=== PATIENT | female | born 1950 | race Caucasian/White ===

== ENCOUNTER → 2016-07-04 | Outpatient (CLI) | payer OTHER ==
[~2016-07-04] MED LIST: ACTOPLUS MET 851 TAB PO; AMBIEN10 MG PO; BENICAR20 MG PO; BUSPAR5 MG PO; CELEXA40 MG PO; COZAAR50 MG PO; DESYREL50 MG PO; ENALAPRIL10 M1 PO; LYRICA75 MG PO; MICRONASE5 MG PO; PROTONIX40 MG PO; SERTRALINE100 M1 PO; SIMVASTATIN20 MG PO; TYLENOL #3 300/1 TAB PO; ULTRAM50 MG PO; VOLTAREN75 M1 PO
== END ==
LOC: MLB 09:50
PROVIDERS: ATTEND Family Medicine Geriatric Medicine
DX: Z13.29 Encounter for screening for other suspected endocrine disorder (principal); Z13.0 Encounter for screening for diseases of the blood and blood-forming organs and certain disorders involving the immune mechanism; E11.9 Type 2 diabetes mellitus without complications; E78.5 Hyperlipidemia, unspecified

== ENCOUNTER 2016-08-15 10:34 | Outpatient (CLI) | payer OTHER ==
[~2016-08-15 10:34] MED LIST changes: -ACTOPLUS MET 851 TAB PO; -AMBIEN10 MG PO; -BENICAR20 MG PO; +BUS5 PO; -BUSPAR5 MG PO; -CELEXA40 MG PO; +CITA40TA13 PO; +COZ50 PO; -COZAAR50 MG PO; -DESYREL50 MG PO; -ENALAPRIL10 M1 PO; +LYR75 PO; -LYRICA75 MG PO; -MICRONASE5 MG PO; +PANT40EC PO; -PROTONIX40 MG PO; -SERTRALINE100 M1 PO; -SIMVASTATIN20 MG PO; +TRAZ-286 PO; +TYL3 PO; -TYLENOL #3 300/1 TAB PO; -ULTRAM50 MG PO; -VOLTAREN75 M1 PO
[2016-08-15 11:05] LABS: BASOPHILS # (AUTO) 0.1 K/uL (0.00-0.22); BASOPHILS % (AUTO) 0.8 % (0.0-2.0); EOSINOPHILS # (AUTO) 0.4 K/uL (0-0.4); EOSINOPHILS % (AUTO) 4.7 % (0.0-4.0); HEMATOCRIT 36.3 % (36-48); LYMPHOCYTES # (AUTO) 1.9 K/uL (2.5-16.5); LYMPHOCYTES % (AUTO) 23.8 % (20.5-51.1); MEAN CORPUSCULAR HEMOGLOBIN 31 pg (27-31); MEAN CORPUSCULAR HGB CONC 33 g/dL (33-37); MEAN CORPUSCULAR VOLUME 93 fL (80-94); MONOCYTES # (AUTO) 0.5 K/uL (0.8-1.0); NEUTROPHILS # (AUTO) 5.1 K/uL (1.8-7.7); NEUTROPHILS % (AUTO) 64.7 % (42.2-75.2); PLATELET COUNT (AUTO) 182 K/uL (140-450); RED BLOOD CELL COUNT(AUTO) 3.92 MIL/uL (4.20-5.40); RED CELL DISTRIBUTION WIDTH 12.6 % (11.6-13.7)
[2016-08-15 11:12] LABS: APPEARANCE,URINE CLEAR (CLEAR); BILIRUBIN,URINE NEGATIVE (NEGATIVE); BLOOD, URINE NEGATIVE (NEGATIVE); COLOR,URINE YELLOW (YELLOW); LEUKOCYTE ESTERASE ,URINE NEGATIVE (NEGATIVE); NITRITE, URINE NEGATIVE (NEGATIVE); PROTEIN,URINE NEGATIVE (NEGATIVE); UGLUCOSE NEGATIVE (NEGATIVE); UROBILINOGEN,URINE 0.2 EU/dL (0.2 - 1)
[2016-08-15 11:20] LABS: BACTERIA,URINE OCCASSIONAL /HPF (None Seen); RBC,URINE 0-5 (RARE) /HPF (0-5); SQUAMOUS EPITHELIAL CELL,UR 4-10 (MOD) /LPF (0-3 (FEW)); WBC,URINE 0-5 (RARE) /HPF (0-5)
[2016-08-15 11:22] LABS: ALBUMIN 3.6 g/dL (3.4-5.0); ANION GAP 14.1 (8-16); CALCIUM 8.6 mg/dL (8.5-10.1); POTASSIUM 4.1 mmol/L (3.5-5.1); TOTAL BILIRUBIN 0.6 mg/dL (0.0-1.0); TOTAL PROTEIN, SERUM 7.3 g/dL (6.4-8.2)
[2016-08-15 11:42] LABS: URIC ACID 4.7 mg/dL (2.6-7.2)
[2016-08-16 09:23] LABS: HEMOGLOBIN A1C 7.1 % (4.8-5.6)
[2016-08-16 15:07] LABS: MICROALBUMIN, UR RANDOM 4.6 ug/mL (Not Estab.)
== END 2016-08-15 20:59 | disposition home or self-care (01) ==
LOC: MLB 10:34
PROVIDERS: ATTEND Internal Medicine Nephrology
PROC: BT43ZZZ Ultrasonography of Bilateral Kidneys (ICD-10-PCS; principal; 2016-08-15)
DX: R10.9 Unspecified abdominal pain (principal); I10 Essential (primary) hypertension; E11.9 Type 2 diabetes mellitus without complications
CPT/HCPCS: 36415; 76770; 80053; 81001; 82043; 82306; 82570; 83036; 83970; 84550; 85025

== ENCOUNTER 2016-11-25 10:49 | Outpatient (CLI) | payer OTHER ==
[2016-11-25 11:38] LABS: ALBUMIN 3.4 g/dL (3.4-5.0); ANION GAP 14.4 (8-16); CALCIUM 8.5 mg/dL (8.5-10.1); CARBON DIOXIDE 20.8 mmol/L (21-32); CHOL/HDL RATIO 3.7 (1-4.5); CREATININE 1.2 mg/dL (0.6-1.3); POTASSIUM 4.2 mmol/L (3.5-5.1); TOTAL BILIRUBIN 0.4 mg/dL (0.0-1.0); TOTAL PROTEIN, SERUM 7.4 g/dL (6.4-8.2)
== END 2016-11-25 20:37 | disposition home or self-care (01) ==
LOC: MLB 10:49
PROVIDERS: ATTEND Family Medicine Geriatric Medicine
DX: E11.29 Type 2 diabetes mellitus with other diabetic kidney complication (principal); I10 Essential (primary) hypertension
CPT/HCPCS: 36415; 80053; 83036

== ENCOUNTER 2016-12-02 10:30 | Outpatient (CLI) | payer OTHER ==
[2016-12-02 10:55] LABS: BASOPHILS # (AUTO) 0.1 K/uL (0.00-0.22); EOSINOPHILS # (AUTO) 0.3 K/uL (0-0.4); EOSINOPHILS % (AUTO) 2.8 % (0.0-4.0); HEMATOCRIT 36.3 % (36-48); LYMPHOCYTES # (AUTO) 1.6 K/uL (2.5-16.5); LYMPHOCYTES % (AUTO) 16.5 % (20.5-51.1); MEAN CORPUSCULAR HEMOGLOBIN 30 pg (27-31); MEAN CORPUSCULAR HGB CONC 33 g/dL (33-37); MEAN CORPUSCULAR VOLUME 92 fL (80-94); MONOCYTES # (AUTO) 0.5 K/uL (0.8-1.0); MONOCYTES % (AUTO) 5.2 % (1.7-9.3); NEUTROPHILS # (AUTO) 7.3 K/uL (1.8-7.7); NEUTROPHILS % (AUTO) 74.5 % (42.2-75.2); PLATELET COUNT (AUTO) 194 K/uL (140-450); RED BLOOD CELL COUNT(AUTO) 3.95 MIL/uL (4.20-5.40); RED CELL DISTRIBUTION WIDTH 12.9 % (11.6-13.7); WHITE BLOOD COUNT (AUTO) 9.8 K/uL (4.8-10.8)
[2016-12-02 11:04] LABS: APPEARANCE,URINE CLEAR (CLEAR); BILIRUBIN,URINE NEGATIVE (NEGATIVE); BLOOD, URINE NEGATIVE (NEGATIVE); COLOR,URINE YELLOW (YELLOW); LEUKOCYTE ESTERASE ,URINE 1+ (NEGATIVE); NITRITE, URINE NEGATIVE (NEGATIVE); PROTEIN,URINE NEGATIVE (NEGATIVE); UGLUCOSE NEGATIVE (NEGATIVE); UROBILINOGEN,URINE 0.2 EU/dL (0.2 - 1)
[2016-12-02 11:25] LABS: BACTERIA,URINE 0-2 (RARE) /HPF (None Seen); RBC,URINE NONE SEEN /HPF (0-5); SQUAMOUS EPITHELIAL CELL,UR 0-3 (FEW) /LPF (0-3 (FEW))
[2016-12-02 11:28] LABS: ALBUMIN 3.6 g/dL (3.4-5.0); ANION GAP 12.3 (8-16); CALCIUM 8.5 mg/dL (8.5-10.1); CARBON DIOXIDE 24.7 mmol/L (21-32); CREATININE 1.1 mg/dL (0.6-1.3); PHOSPHORUS 2.4 mg/dL (2.5-4.9); TOTAL BILIRUBIN 0.6 mg/dL (0.0-1.0); TOTAL PROTEIN, SERUM 7.6 g/dL (6.4-8.2)
[2016-12-02 12:02] LABS: URIC ACID 4.8 mg/dL (2.6-7.2)
[2016-12-03 11:03] LABS: HEMOGLOBIN A1C 7.7 % (4.8-5.6); VITAMIN D, 25-HYDROXY 14.3 ng/mL (30.0-100.0)
[2016-12-04 12:46] LABS: MICROALBUMIN, UR RANDOM 28.1 ug/mL (Not Estab.)
== END 2016-12-02 19:55 | disposition home or self-care (01) ==
LOC: MLB 10:30
PROVIDERS: ATTEND Internal Medicine Nephrology
DX: N18.3 Chronic kidney disease, stage 3 (moderate) (principal); E11.22 Type 2 diabetes mellitus with diabetic chronic kidney disease; E11.21 Type 2 diabetes mellitus with diabetic nephropathy
CPT/HCPCS: 36415; 80053; 81001; 82043; 82306; 83036; 83970; 84100; 84550; 85025; 87086

== ENCOUNTER 2016-12-19 10:49 | Outpatient (CLI) | payer OTHER | END 2016-12-19 21:04 | disposition home or self-care (01) | LOC: MRD 10:49 | PROVIDERS: ATTEND Family Medicine Geriatric Medicine | DX: M25.511 Pain in right shoulder (principal) | CPT/HCPCS: 73030 ==

== ENCOUNTER 2017-01-06 11:03 | Outpatient (CLI) | payer OTHER | END 2017-01-06 20:20 | disposition home or self-care (01) | LOC: MRD 11:03 | PROVIDERS: ATTEND Neuromusculoskeletal Medicine, Sports Medicine | DX: N92.0 Excessive and frequent menstruation with regular cycle (principal) | CPT/HCPCS: 76856 ==

== ENCOUNTER 2017-03-12 09:44 | Outpatient (CLI) | payer OTHER ==
[2017-03-12 10:17] LABS: BASOPHILS # (AUTO) 0.1 K/uL (0.00-0.22); BASOPHILS % (AUTO) 1.6 % (0.0-2.0); EOSINOPHILS # (AUTO) 0.3 K/uL (0-0.4); EOSINOPHILS % (AUTO) 3.5 % (0.0-4.0); HEMATOCRIT 37.2 % (36-48); HEMOGLOBIN 12.2 g/dL (12.0-16.0); LYMPHOCYTES # (AUTO) 1.9 K/uL (2.5-16.5); LYMPHOCYTES % (AUTO) 23.1 % (20.5-51.1); MEAN CORPUSCULAR HEMOGLOBIN 31 pg (27-31); MEAN CORPUSCULAR HGB CONC 33 g/dL (33-37); MEAN CORPUSCULAR VOLUME 94 fL (80-94); MONOCYTES # (AUTO) 0.4 K/uL (0.8-1.0); MONOCYTES % (AUTO) 4.6 % (1.7-9.3); NEUTROPHILS # (AUTO) 5.6 K/uL (1.8-7.7); NEUTROPHILS % (AUTO) 67.2 % (42.2-75.2); PLATELET COUNT (AUTO) 209 K/uL (140-450); RED BLOOD CELL COUNT(AUTO) 3.96 MIL/uL (4.20-5.40); RED CELL DISTRIBUTION WIDTH 12.9 % (11.6-13.7); WHITE BLOOD COUNT (AUTO) 8.3 K/uL (4.8-10.8)
[2017-03-12 10:22] LABS: APPEARANCE,URINE CLEAR (CLEAR); BILIRUBIN,URINE NEGATIVE (NEGATIVE); BLOOD, URINE NEGATIVE (NEGATIVE); COLOR,URINE YELLOW (YELLOW); LEUKOCYTE ESTERASE ,URINE NEGATIVE (NEGATIVE); NITRITE, URINE NEGATIVE (NEGATIVE); UGLUCOSE NEGATIVE (NEGATIVE)
[2017-03-12 10:29] LABS: RBC,URINE NONE SEEN /HPF (0-5); WBC,URINE 0-5 (RARE) /HPF (0-5)
[2017-03-12 11:41] LABS: ALBUMIN 3.7 g/dL (3.4-5.0); ANION GAP 13.6 (8-16); CARBON DIOXIDE 24.5 mmol/L (21-32); CREATININE 1.4 mg/dL (0.6-1.3); PHOSPHORUS 3.9 mg/dL (2.5-4.9); POTASSIUM 4.1 mmol/L (3.5-5.1); TOTAL BILIRUBIN 0.6 mg/dL (0.0-1.0)
[2017-03-13 13:56] LABS: URIC ACID 6.3 mg/dL (2.6-7.2)
== END 2017-03-12 20:45 | disposition home or self-care (01) ==
LOC: MLB 09:44
DX: I12.9 Hypertensive chronic kidney disease with stage 1 through stage 4 chronic kidney disease, or unspecified chronic kidney disease (principal); E11.22 Type 2 diabetes mellitus with diabetic chronic kidney disease; N18.3 Chronic kidney disease, stage 3 (moderate)
CPT/HCPCS: 36415; 80053; 81001; 82306; 83036; 83970; 84100; 84550; 85025; 87086

== ENCOUNTER 2017-05-20 16:25 | Outpatient (CLI) | payer OTHER | END 2017-05-20 21:00 | disposition home or self-care (01) | LOC: MRD 16:25 | PROVIDERS: ATTEND Student in an Organized Health Care Education/Training Program | DX: R05 Cough (principal); I10 Essential (primary) hypertension; E11.9 Type 2 diabetes mellitus without complications | CPT/HCPCS: 71045 ==

== ENCOUNTER 2017-06-18 09:44 | Outpatient (CLI) | payer OTHER ==
[2017-06-18 11:35] LABS: BASOPHILS # (AUTO) 0.1 K/uL (0.00-0.22); BASOPHILS % (AUTO) 1.3 % (0.0-2.0); EOSINOPHILS # (AUTO) 0.3 K/uL (0-0.4); EOSINOPHILS % (AUTO) 3.4 % (0.0-4.0); HEMATOCRIT 36.1 % (36-48); LYMPHOCYTES # (AUTO) 1.6 K/uL (2.5-16.5); LYMPHOCYTES % (AUTO) 21.3 % (20.5-51.1); MEAN CORPUSCULAR HEMOGLOBIN 31 pg (27-31); MEAN CORPUSCULAR HGB CONC 33 g/dL (33-37); MEAN CORPUSCULAR VOLUME 93 fL (80-94); MONOCYTES # (AUTO) 0.4 K/uL (0.8-1.0); MONOCYTES % (AUTO) 5.6 % (1.7-9.3); NEUTROPHILS # (AUTO) 5.2 K/uL (1.8-7.7); NEUTROPHILS % (AUTO) 68.4 % (42.2-75.2); PLATELET COUNT (AUTO) 172 K/uL (140-450); RED BLOOD CELL COUNT(AUTO) 3.88 MIL/uL (4.20-5.40); RED CELL DISTRIBUTION WIDTH 12.3 % (11.6-13.7); WHITE BLOOD COUNT (AUTO) 7.6 K/uL (4.8-10.8)
[2017-06-18 11:53] LABS: APPEARANCE,URINE CLEAR (CLEAR); BILIRUBIN,URINE NEGATIVE (NEGATIVE); BLOOD, URINE NEGATIVE (NEGATIVE); COLOR,URINE YELLOW (YELLOW); LEUKOCYTE ESTERASE ,URINE NEGATIVE (NEGATIVE); NITRITE, URINE NEGATIVE (NEGATIVE); PH,URINE 5.5 (5.0-9.0); UGLUCOSE NEGATIVE (NEGATIVE)
[2017-06-18 12:08] LABS: RBC,URINE NONE SEEN /HPF (0-5); WBC,URINE 0-5 (RARE) /HPF (0-5)
[2017-06-18 12:29] LABS: ALBUMIN 3.6 g/dL (3.4-5.0); ANION GAP 15.9 (8-16); CARBON DIOXIDE 22.9 mmol/L (21-32); CREATININE 1.2 mg/dL (0.6-1.3); PHOSPHORUS 2.9 mg/dL (2.5-4.9); POTASSIUM 4.8 mmol/L (3.5-5.1); TOTAL BILIRUBIN 0.6 mg/dL (0.0-1.0)
[2017-06-19 12:38] LABS: MICROALBUMIN, UR RANDOM 5.1 ug/mL (Not Estab.)
== END 2017-06-18 21:06 | disposition home or self-care (01) ==
LOC: MLB 09:44
PROVIDERS: ATTEND Family Medicine Geriatric Medicine
DX: Z13.21 Encounter for screening for nutritional disorder (principal); Z13.0 Encounter for screening for diseases of the blood and blood-forming organs and certain disorders involving the immune mechanism; Z13.29 Encounter for screening for other suspected endocrine disorder; Z12.11 Encounter for screening for malignant neoplasm of colon; E11.21 Type 2 diabetes mellitus with diabetic nephropathy; I12.9 Hypertensive chronic kidney disease with stage 1 through stage 4 chronic kidney disease, or unspecified chronic kidney disease; E11.22 Type 2 diabetes mellitus with diabetic chronic kidney disease; N18.3 Chronic kidney disease, stage 3 (moderate); E78.5 Hyperlipidemia, unspecified; E11.29 Type 2 diabetes mellitus with other diabetic kidney complication
CPT/HCPCS: 36415; 80053; 81001; 82043; 82306; 83036; 84100; 84443; 84550; 85025

== ENCOUNTER 2017-09-09 14:00 | Emergency (ER) | payer MEDICARE, OTHER ==
[~2017-09-09] VITALS: Ht 167.6 cm; Wt 79.4 kg
[2017-09-09 14:04] VITALS: BP 133/83
--- NOTE | 2017-09-09 14:07 | NUR ---
PT AMBULATES TO BED 11
--- NOTE | 2017-09-09 14:09 | NUR ---
PT C/O RT ARM PAIN S/P MECH FALL TODAY. SMALL BRUISE OBSERVED TO RT HUMERUS, NO DEFORMITY, DECREASED ROM. MD BARR AT BEDSIDE TO STUART
[2017-09-09] MEDS ORDERED: HYDROcodone/APAP 5/325 MG 1 TAB TAB PO ONE (14:15)
[2017-09-09] MEDS ORDERED: KETOROLAC 60 MG/2 ML VIAL IM ONE (14:15)
[2017-09-09 15:11] VITALS: BP 134/89
--- NOTE | 2017-09-09 15:12 | NUR ---
Patient discharged with v/s stable. Written and verbal after care instructions given and explained. Patient alert, oriented and verbalized understanding of instructions. Ambulatory with steady gait. All questions addressed prior to discharge. ID band removed. Patient advised to follow up with PMD. Rx of NAPROSYN, NORCO given. Patient educated on indication of medication including possible reaction and side effects. Opportunity to ask questions provided and answered.
== END 2017-09-09 15:12 | disposition home or self-care (01) ==
LOC: MED 14:00
DX: S46.911A Strain of unspecified muscle, fascia and tendon at shoulder and upper arm level, right arm, initial encounter (principal); S00.93XA Contusion of unspecified part of head, initial encounter; S70.02XA Contusion of left hip, initial encounter; E11.9 Type 2 diabetes mellitus without complications; I10 Essential (primary) hypertension; Z90.49 Acquired absence of other specified parts of digestive tract; W01.0XXA Fall on same level from slipping, tripping and stumbling without subsequent striking against object, initial encounter; Y93.89 Activity, other specified; Y99.8 Other external cause status; Y92.89 Other specified places as the place of occurrence of the external cause
CPT/HCPCS: 73060; 96372; 99284; J1885; Q0092

== ENCOUNTER 2018-09-01 16:55 | Emergency (ER) | payer MEDICARE ==
[~2018-09-01] VITALS: Ht 165.1 cm; Wt 77.1 kg
[~2018-09-01 16:55] MED LIST changes: -TRAZ-286 PO; +TRAZ-343 PO
[2018-09-01 17:14] VITALS: BP 135/73
--- NOTE | 2018-09-01 17:18 | NUR ---
X-RAY ORDERED---PT WITH WILL WAIT IN ER LOBBY WAIT FOR AVAILABLE ROOM FOR MD DAVIDSON
--- NOTE | 2018-09-01 17:49 | NUR ---
PT IN XRAY
--- NOTE | 2018-09-01 17:56 | NUR ---
PT TO CHAIR C WITH STEADY GAIT. REPORTS 02/25 PAIN EXACERBATED BY INSPIRATION TO RIGHT RIBS S/P MRI TODAY. PT STATES " I FELT CRACKING WHILE IN THE MRI, I WAS PRESSED SO HARD". +TENDERNESS TO PALPATION. LUNGS CTAB, RESPIRATIONS EVEN AND UNLABORED. DENIES SOB. REPORTS PMH: DM, RIGHT BREAST MASS. SANTANA VOSS MADE AWARE
[2018-09-01] MEDS ORDERED: KETOROLAC 30 MG/ML VIAL IM ONE (19:00)
[2018-09-01 19:46] VITALS: BP 135/73
== END 2018-09-01 19:47 | disposition home or self-care (01) ==
LOC: MED 16:55
DX: S20.211A Contusion of right front wall of thorax, initial encounter (principal); I10 Essential (primary) hypertension; E11.9 Type 2 diabetes mellitus without complications; Z79.1 Long term (current) use of non-steroidal anti-inflammatories (NSAID); Z79.899 Other long term (current) drug therapy; X58.XXXA Exposure to other specified factors, initial encounter; Y93.89 Activity, other specified; Y92.89 Other specified places as the place of occurrence of the external cause; Y99.8 Other external cause status
CPT/HCPCS: 71101; 96372; 99283; J1885

== ENCOUNTER 2018-09-11 11:18 | Inpatient (IN) | payer MEDICARE ==
[~2018-09-11] VITALS: Ht 170.2 cm; Wt 81.2 kg
--- NOTE | 2018-09-11 11:19 | NUR ---
PATIENT WHEELCHAIR ASSISTED TO BED 10 AT THIS TIME.
[2018-09-11 11:27] VITALS: BP 163/79
--- NOTE | 2018-09-11 11:30 | NUR ---
c/o weakness/cp/n/v x 1 day. pt is lethargic & confused, arousable to major stimulation. fsbs is 262. pt is sleeping/snoring in bed. PT IS WEAK IN ALL 4 EXTREMETIES. SKIN IS PINK/WARM/DRY; AAOX1 AND UNABLE TO AMBULATE LUNGS CLEAR BL; HR EVEN AND REGULAR; VSS; PATIENT POSITIONED FOR COMFORT; HOB ELEVATED; BEDRAILS UP X1; BED DOWN. ER MD MADE AWARE OF PT STATUS.
--- NOTE | 2018-09-11 12:04 | NUR ---
PT LEFT TO CT
[2018-09-11] MEDS ORDERED: BACL10TA4 PO (12:26)
[2018-09-11] MEDS ORDERED: OMEP20TC12 PO (12:26)
[2018-09-11] MEDS ORDERED: APR20I IJ (12:26)
[2018-09-11] MEDS ORDERED: GLIM2TAB PO (12:26)
[2018-09-11] MEDS ORDERED: BUS5 PO (12:26)
[2018-09-11] MEDS ORDERED: METF1000 PO (12:26)
[2018-09-11] MEDS ORDERED: DICL-388 PO (12:26)
[2018-09-11] MEDS ORDERED: TRAZ-343 PO (12:26)
[2018-09-11] MEDS ORDERED: CITA40TA13 PO (12:26)
[2018-09-11] MEDS ORDERED: GABA300C PO (12:26)
[2018-09-11] MEDS ORDERED: SITA100T8 PO (12:26)
[2018-09-11 12:27] LABS: ANION GAP 15.2 (8-16); BASOPHILS % (AUTO) 0.2 % (0.0-2.0); CARBON DIOXIDE 21.7 mmol/L (21-32); CHLORIDE 105 mmol/L (98-107); CREATININE 1.3 mg/dL (0.6-1.3); EOSINOPHILS % (AUTO) 0.3 % (0.0-4.0); GFR ARICAN-AMERICAN 52 mL/min (>90); GLUCOSE 275 mg/dL (74-106); HEMATOCRIT 31.8 % (36-48); HEMOGLOBIN 10.7 g/dL (12.0-16.0); LYMPHOCYTES # (AUTO) 0.7 K/uL (2.5-16.5); MEAN CORPUSCULAR HEMOGLOBIN 33 pg (27-31); MEAN CORPUSCULAR HGB CONC 34 g/dL (33-37); MEAN CORPUSCULAR VOLUME 98.1 fL (80-94); MONOCYTES # (AUTO) 0.3 K/uL (0.8-1.0); MONOCYTES % (AUTO) 3.2 % (1.7-9.3); NEUTROPHILS % (AUTO) 88.3 % (42.2-75.2); PLATELET COUNT (AUTO) 197 K/uL (140-450); POTASSIUM 4.9 mmol/L (3.5-5.1); RED BLOOD CELL COUNT(AUTO) 3.24 MIL/uL (4.20-5.40); RED CELL DISTRIBUTION WIDTH 13.3 % (11.6-13.7); SODIUM SERUM 137 mmol/L (136-145); UREA NITROGEN, BLOOD 33 mg/dL (7-18); WHITE BLOOD COUNT (AUTO) 9.1 K/uL (4.8-10.8)
[2018-09-11 12:31] LABS: ALBUMIN 3.6 g/dL (3.4-5.0); ASPARTATE AMINOTRANSFERASE 23 U/L (15-37); TOTAL BILIRUBIN 0.3 mg/dL (0.0-1.0)
--- NOTE | 2018-09-11 12:35 | NUR ---
URINE SAMPLE COLLECTED VIA STRAIGHT CATH, SENT TO LAB
[2018-09-11 12:36] LABS: ACETAMINOPHEN < 0.5 ug/ml (10-30); SALICYLATE < 2.8 mg/dL (2.8-20.0)
--- NOTE | 2018-09-11 12:40 | NUR ---
PERFORMED STRAIGHT CATH TO OBTAIN URINE, PT TOLERATED PROCEDURE WELL. 300 CC CLEAR YELLOW URINE RETURNED
--- NOTE | 2018-09-11 12:43 | NUR ---
PT ASLEEP IN BED, AT BEDSIDE
[2018-09-11 13:07] LABS: APPEARANCE,URINE CLEAR (CLEAR); BILIRUBIN,URINE NEGATIVE (NEGATIVE); BLOOD, URINE NEGATIVE (NEGATIVE); COLOR,URINE YELLOW (YELLOW); LEUKOCYTE ESTERASE ,URINE NEGATIVE (NEGATIVE); NITRITE, URINE NEGATIVE (NEGATIVE); PH,URINE 5.5 (5.0-9.0); UGLUCOSE 3+ (NEGATIVE)
[2018-09-11 13:12] LABS: BARBITURATE, URINE NEG. ng/ml (NEG <=200); BENZODIAZEPINE, URINE NEG. ng/mL (NEG <=200); CANNABINOID, URINE NEG. ng/mL (NEG <=50); COCAINE, URINE NEG. ng/mL (NEG <=300); OPIATE, URINE NEG. ng/mL (NEG <=2000); PHENCYCLIDINE SCREEN,URINE NEG. ng/mL (NEG <=25)
[2018-09-11 13:40] LABS: RBC,URINE NONE SEEN /HPF (0-5); WBC,URINE 0-5 /HPF (0-5)
[2018-09-11] MEDS ORDERED: NACL 0.9% 1,000 ML IV ONE (14:40)
--- NOTE | 2018-09-11 15:47 | NUR ---
PT RESTING/ASLEEP IN BED
--- NOTE | 2018-09-11 16:52 | NUR ---
PT ASLEEP AT THIS TIME, FAMILY AT BEDSIDE
[2018-09-11] MEDS ORDERED: ONDANSETRON 4 MG/2 ML VIAL IVP PRN (17:15)
[2018-09-11] MEDS ORDERED: HYDROcodone/APAP 7.5/325 MG 1 TAB PO PRN (17:15)
[2018-09-11] MEDS ORDERED: DEXTROSE 50% 50 ML SYR IVP PRN (17:15)
[2018-09-11] MEDS ORDERED: MELATONIN 3 MG TAB PO PRN (17:50)
[2018-09-11] MEDS ORDERED: MEDICATION REC. PHARMACY CONS. 1 EA MISC MC PRN (17:50)
--- NOTE | 2018-09-11 18:09 | NUR ---
Pt transferred to Tele viaBED WITH KARINA ASHRAF .
--- NOTE | 2018-09-11 18:10 | NUR ---
Patient will be admitted to care of DR STEPHENSON. Admited to [facility]. Will go to room 121A. Belongings list completed. Report to JANI.
--- NOTE | 2018-09-11 18:20 | NUR ---
RECEIVED REPORT FROM EMERGENCY ROOM NURSE PASCALE FOR CONTINUITY OF CARE. PT IN STABLE CONDITION. RESPIRATIONS EVEN AND UNLABORED. IV INTACT AND PATENT. BED IN LOW POSITION. BED ALARM ON. CALL LIGHT AT BEDSIDE. WILL CONTINUE TO MONITOR.
--- NOTE | 2018-09-11 19:07 | NUR ---
ASSISTED PT WITH BEDPAN FOR URINATION. PT TOLERATED WELL. WILL CONTINUE TO MONITOR.
[2018-09-11 19:30] VITALS: BP 154/83
--- NOTE | 2018-09-11 19:30 | NUR ---
RECEIVED BEDSIDE REPORT FROM DAY SHIFT NURSE. PATIENT SLEEPING INTERMITTENTLY BUT AWAKENS WHEN CALLED. ORIENTED TO TIME, PLACE, AND PERSON AOX3. SPEECH COHERENT. RESPIRATION EVEN UNLABORED ON 2L O2 NC. NO DISTRESS NOTED. SKIN IS WARM AND DRY. IV PATENT AND INTACT. LUNGS SOUNDS CLEAR ON AUSCULTATION. BOWEL SOUNDS PRESENT IN 4 QUADRANTS. ABDOMEN ROUND, SOFT, AND NON-TENDER. LAST BM 09/10/18. FAMILY AT BEDSIDE. PLAN OF CARE WAS DISCUSSED. MRSA SCREEN DONE. VITALS STABLE. ALL SAFETY MEASURES IN PLACE. BED IS IN LOW POSITION. CALL LIGHT WITHIN REACH AND VERBALIZES ITS USE. WILL CONTINUE TO MONITOR.
[2018-09-11 19:38] LABS: PROTHROMBIN TIME 9.3 secs (10.8-13.4)
--- NOTE | 2018-09-11 19:39 | NUR ---
GAVE BEDSIDE REPORT TO LEAD DESIGNER NURSE KISSES FOR CONTINUITY OF CARE. PT IN STABLE CONDITION.
[2018-09-11 19:43] LABS: FREE T4 (FREE THYROXINE) 1.1 ng/dL (0.76-1.46); MAGNESIUM 1.7 mg/dL (1.8-2.4); PHOSPHORUS 2.4 mg/dL (2.5-4.9); THYROID STIMULATING HORMONE 0.42 uIU/mL (0.34-3.74)
[2018-09-11] MEDS: NACL 0.9% 1,000 ML IV SCH (20:32)
[2018-09-11] MEDS: DOCUSATE SODIUM 100 MG GELCAP PO SCH (20:32)
[2018-09-11] MEDS: GABAPENTIN 100 MG CAP PO SCH (20:32)
[2018-09-11] MEDS: hydrALAZINE 25 MG TAB PO SCH (20:33)
[2018-09-11] MEDS: metFORMIN 500 MG TAB PO SCH (20:33)
[2018-09-11] MEDS: busPIRone 5 MG TAB PO SCH (20:34)
[2018-09-11] MEDS: BLOOD GLUCOSE MONITORING 1 DEV DEV FS SCH (20:36)
[2018-09-11] MEDS: INSULIN LISPRO SLIDING SCALE 100 UNITS/ML VIAL SUBQ PRN (20:42)
[2018-09-11] MEDS ORDERED: traZODone 50 MG TAB PO SCH (21:00)
[2018-09-11] MEDS ORDERED: busPIRone 5 MG TAB PO SCH (21:00)
[2018-09-11] MEDS ORDERED: PANTOPRAZOLE 40 MG TABEC PO SCH (21:00)
[2018-09-11] MEDS ORDERED: GABAPENTIN 300 MG CAP PO SCH (21:00)
[2018-09-11] MEDS ORDERED: PREGABALIN 25 MG CAP PO SCH (21:00)
--- NOTE | 2018-09-11 21:00 | NUR ---
ALL SCHEDULED MEDS WERE GIVEN PER ORDER. NO ASE NOTED. WILL CONTINUE TO MONITOR.
--- NOTE | 2018-09-11 23:00 | NUR ---
PATIENT LYING IN BED RESPIRATION EVEN UNLABORED ON 2L O2. NO DISTRESS NOTED. WILL CONTINUE TO MONITOR
[2018-09-12] VITALS: BP 152/73
--- NOTE | 2018-09-12 | NUR ---
VITALS WERE TAKEN. PATIENT CONDITION STABLE. NO DISTRESS NOTED. WILL CONTINUE TO MONITOR
--- NOTE | 2018-09-12 02:00 | NUR ---
CHECKED PATIENT. PATIENT SLEEPING RESPIRATION EVEN UNLABORED ON 2L O2 NC. NO DISTRESS NOTED. WILL CONTINUE TO MONITOR
[2018-09-12] MEDS: NACL 0.9% 1,000 ML IV SCH ×2 (03:12→17:32)
[2018-09-12] MEDS ORDERED: NACL 0.9% 1,000 ML IV ONE (03:55)
[2018-09-12 04:00] VITALS: BP 146/74
--- NOTE | 2018-09-12 04:00 | NUR ---
VITALS WERE TAKEN. PATIENT CONDITION STABLE. PATIENT COMPLAINED OF NAUSEOUS PRN ANTIEMETIC MED ADMINISTERED PER ORDER. WILL CONTINUE TO MONITOR
[2018-09-12] MEDS: PANTOPRAZOLE 40 MG TABEC PO SCH (05:48)
[2018-09-12] MEDS: BLOOD GLUCOSE MONITORING 1 DEV DEV FS SCH ×4 (06:29→19:54)
[2018-09-12] MEDS: INSULIN LISPRO SLIDING SCALE 100 UNITS/ML VIAL SUBQ PRN ×2 (06:30→11:39)
[2018-09-12] MEDS ORDERED: KCL 20 MEQ/WATER INJ PREMIX 100 ML IV ONE (06:45)
[2018-09-12] MEDS ORDERED: SODIUM PHOS / POTASSIUM PHOS 1 PKT PDR PO ONE (06:50)
[2018-09-12] MEDS ORDERED: LACTULOSE 20 GM/30 ML UDC PO SCH (07:00)
[2018-09-12] MEDS ORDERED: SODIUM PHOSPHATE 15 MMOLE in NACL 0.9% 250 ML IV SCH (07:00)
--- NOTE | 2018-09-12 07:22 | NUR ---
ENDORSED PATIENT TO DAY SHIFT NURSE. PATIENT CONDITION STABLE
--- NOTE | 2018-09-12 07:25 | NUR ---
RECEIVED BEDSIDE REPORT FROM BULK [employer]S HANDLING PLANT OPERATOR NURSE. PATIENT AWAKE, RESTING IN BED. AOX4. RESPIRATION EVEN AND UNLABORED ON 2L O2 NC. NO DISTRESS NOTED. LUNGS CTA. TACHYCARDIC AT 105 BPM. SKIN IS WARM, DRY, AND INTACT. IV PATENT AND ASYMPTOMATIC, INFUSING IVF PER MD ORDERS. ALL SAFETY MEASURES IN PLACE. BED IS IN LOW POSITION. WILL CONTINUE TO MONITOR.
[2018-09-12 08:00] VITALS: BP 143/80
[2018-09-12] MEDS: GLIMEPIRIDE 2 MG TAB PO SCH ×2 (08:00→17:02)
[2018-09-12] MEDS ORDERED: BACLOFEN 10 MG TAB PO SCH (08:00)
[2018-09-12 08:10] LABS: BASOPHILS % (AUTO) 0.2 % (0.0-2.0); EOSINOPHILS % (AUTO) 0.4 % (0.0-4.0); HEMATOCRIT 30.6 % (36-48); HEMOGLOBIN 10.2 g/dL (12.0-16.0); LYMPHOCYTES # (AUTO) 1.6 K/uL (2.5-16.5); LYMPHOCYTES % (AUTO) 16.7 % (20.5-51.1); MEAN CORPUSCULAR HEMOGLOBIN 33 pg (27-31); MEAN CORPUSCULAR HGB CONC 33 g/dL (33-37); MEAN CORPUSCULAR VOLUME 99.1 fL (80-94); MONOCYTES # (AUTO) 0.5 K/uL (0.8-1.0); MONOCYTES % (AUTO) 5.2 % (1.7-9.3); NEUTROPHILS # (AUTO) 7.4 K/uL (1.8-7.7); NEUTROPHILS % (AUTO) 77.5 % (42.2-75.2); PLATELET COUNT (AUTO) 203 K/uL (140-450); RED BLOOD CELL COUNT(AUTO) 3.09 MIL/uL (4.20-5.40); RED CELL DISTRIBUTION WIDTH 13.1 % (11.6-13.7); WHITE BLOOD COUNT (AUTO) 9.5 K/uL (4.8-10.8)
[2018-09-12 08:18] LABS: CHOL/HDL RATIO 3.4 (1-4.5); MAGNESIUM 1.6 mg/dL (1.8-2.4); PHOSPHORUS 2.6 mg/dL (2.5-4.9)
[2018-09-12] MEDS: busPIRone 5 MG TAB PO SCH ×2 (08:20→20:22)
[2018-09-12] MEDS: LOSARTAN 50 MG TAB PO SCH (08:20)
[2018-09-12] MEDS: ACETAMINOPHEN 325 MG TAB PO PRN ×3 (08:20→23:57)
[2018-09-12] MEDS: CITALOPRAM 20 MG TAB PO SCH (08:21)
[2018-09-12] MEDS: METOPROLOL 25 MG TAB PO SCH ×2 (08:21→20:23)
[2018-09-12] MEDS: DOCUSATE SODIUM 100 MG GELCAP PO SCH ×2 (08:21→20:22)
[2018-09-12] MEDS: hydrALAZINE 25 MG TAB PO SCH ×2 (08:21→20:23)
[2018-09-12] MEDS: metFORMIN 500 MG TAB PO SCH ×2 (08:22→20:22)
[2018-09-12] MEDS: GABAPENTIN 100 MG CAP PO SCH ×2 (08:22→20:23)
--- NOTE | 2018-09-12 08:27 | NUR ---
CHELO NOT ADMINISTERED- K+ IS 4.9. AMARYL NOT ADMINISTERED- PT REFUSED BREAKFAST. PER PHARMACIST, OK TO NON-ADMIN AMARYL. Addendum: 09/12/18 at 0916 by Zabrina Klein Meng, RN PHARMACIST STEPHANIE HILL NOT ADMINISTERED.
[2018-09-12] MEDS ORDERED: MAG SULF 2000 MG/WATER PREMIX 50 ML IV ONE (08:40)
[2018-09-12 08:50] LABS: ANION GAP 17.5 (8-16); POTASSIUM 4.5 mmol/L (3.5-5.1)
[2018-09-12 08:51] LABS: CREATININE 0.9 mg/dL (0.6-1.3)
--- NOTE | 2018-09-12 09:15 | NUR ---
PATIENT HAD SOFT, FORMED BM.
--- NOTE | 2018-09-12 10:03 | NUR ---
PATIENT HAD DIARRHEA- ON LACTULOSE.
--- NOTE | 2018-09-12 11:33 | NUR ---
PT STATES LEGS CONTINUE TO FEEL WEAK. NEEDS 1 PERSON ASSIST TO BEDSIDE COMMODE.
--- NOTE | 2018-09-12 11:33 | NUR ---
DENIES PAIN AND DISCOMFORT. FAMILY MEMBER AT BEDSIDE. ALL SAFETY PRECAUTIONS IN PLACE.
[2018-09-12 12:00] VITALS: BP 109/55
--- NOTE | 2018-09-12 14:13 | NUR ---
PT SITTING UP IN BED, TALKING WITH FAMILY MEMBER AT BEDSIDE. DENIES PAIN AND DISCOMFORT. ALL NEEDS MET AT THIS TIME. ALL SAFETY PRECAUTIONS IN PLACE, WILL CONTINUE TO MONITOR.
--- NOTE | 2018-09-12 15:39 | NUR ---
HELPED PATIENT TO THE BATHROOM. PT STATES SHE FEELS MUCH STRONGER.
[2018-09-12 16:00] VITALS: BP 125/64
--- NOTE | 2018-09-12 16:11 | NUR ---
FIELD COURT RESEARCHER AT BEDSIDE FOR US CAROTID.
--- NOTE | 2018-09-12 17:09 | NUR ---
SCHEDULED MEDICATIONS ADMINISTERED. PT C/O HEADACHE- ADMINISTERED TYLENOL AT 1706. EXPLAINED PROCESS FOR OBTAINING ORTHOSTATIC BP. PT WANTS TO DEFER TO LATER D/T TO HEADACHE NOW.
--- NOTE | 2018-09-12 17:36 | NUR ---
ASKED IF ORTHOSTATIC BP CAN BE TAKEN. PATIENT STATES SHE FEELS MUCH STRONGER COMPARED TO THIS MORNING BUT STILL UNABLE TO STAND FOR 5 MINUTES FOR ORTHOSTATIC BP D/T BLE WEAKNESS. STATES SHE IS WILLING TO TRY. FOR SAFETY, WILL ENDORSE TO NEXT SHIFT.
--- NOTE | 2018-09-12 19:21 | NUR ---
ENDORSED POC TO EMISSIONS ENGINEER RN. PT IN STABLE CONDITION. ENDORSED FOBT AND ORTHOSTATIC BP.
--- NOTE | 2018-09-12 19:22 | NUR ---
RECEIVED BEDSIDE REPORT FROM RADAMES COLLINS. PT IS AAO X4. ON ROOM AIR. RESPIRATIONS ARE EQUAL AND UNLABORED. DENIES ANY SOB OR PAIN AT THIS TIME. SKIN INTACT. PT ON FALL PRECAUTION. IV ON RAC20G NS INFUSING AT 70M/H. PT RECEIVED LACTULOSE TODAY FOR ELEVATED AMMONIA LEVEL 50. PER NURSE HAD 3BM. OCCULT BLOOD PENDING. EXPLAINED NEED TO PT SHE VERBALIZED UNDERSTANDING. PT TO GO TO [facility] FOR CT OF ABDOMEN AT 1999. BED ALARM ORDER DISPATCHER LIGHT WITHIN REACH. WILL CONTINUE TO MONITOR.
[2018-09-12 20:00] VITALS: BP 146/71
--- NOTE | 2018-09-12 20:23 | NUR ---
SCHEDULED MEDICATIONS GIVEN PT TOLERATED WELL. VITAL SIGNS ARE WITHIN NORMAL LIMITS. ALL NEEDS MET AT THIS TIME. WILL CONTINUE TO MONITOR.
--- NOTE | 2018-09-12 20:40 | NUR ---
PT OFF UNIT TO RADIOLOGY FOR CT.
--- NOTE | 2018-09-12 23:57 | NUR ---
VITAL SIGNS ARE STABLE. ASSISTED PT TO BATHROOM. PT TOLERATED WELL. TYLENOL GIVEN FOR HEADACHE 07/26. CALL LIGHT WITHIN REACH. WILL CONTINUE TO MONITOR.
[2018-09-13] VITALS: BP 120/43
--- NOTE | 2018-09-13 00:24 | NUR ---
PT WITH SNACK AT BEDSIDE. ALL SAFETY MEASURES ARE IN PLACE. CALL LIGHT WITHIN REACH.
--- NOTE | 2018-09-13 02:00 | NUR ---
PT IS SLEEPING COMFORTABLY IN BED. RESPIRATIONS ARE EQUAL AND UNLABORED. SAFETY MEASURES ARE IN PLACE. CALL LIGHT WITHIN REACH. WILL CONTINUE TO MONITOR.
[2018-09-13 04:00] VITALS: BP 139/69
--- NOTE | 2018-09-13 04:00 | NUR ---
VITAL SIGNS ARE STABLE. ASSISTED PT TO BATHROOM. NO BM YET PT VERBALIZED UNDERSTANDING FOR OCCULT BLOOD. CALL LIGHT WITHIN REACH
[2018-09-13] MEDS: PANTOPRAZOLE 40 MG TABEC PO SCH (06:02)
[2018-09-13] MEDS: BLOOD GLUCOSE MONITORING 1 DEV DEV FS SCH ×2 (06:10→12:27)
--- NOTE | 2018-09-13 07:28 | NUR ---
BEDSIDE REPORT GIVEN TO DAY SHIFT RN. PT ENDORSED IN STABLE CONDITION.
--- NOTE | 2018-09-13 07:30 | NUR ---
RECEIVED BEDSIDE REPORT FROM NEON SIGN INSTALLER RN. PT RESTING IN BED, AOX4. ON ROOM AIR. RESPIRATIONS EVEN AND UNLABORED. HEART RHYTHM REGULAR. ACTIVE BOWEL SOUNDS. PT STATES SHE FEELS STRONGER THAN YESTERDAY. PT ON FALL PRECAUTION. IV SITE PATENT AND ASYMPTOMATIC, INFUSING IVF PER MD ORDERS. ENFORCED NEED FOR FOBT SAMPLE. PT VERBALIZED UNDERSTANDING. ALL SAFETY PRECAUTIONS IN PLACE, WILL CONTINUE TO MONITOR.
[2018-09-13 08:00] VITALS: BP 135/70
[2018-09-13 08:04] LABS: BASOPHILS % (AUTO) 0.2 % (0.0-2.0); EOSINOPHILS # (AUTO) 0.1 K/uL (0-0.4); EOSINOPHILS % (AUTO) 1.3 % (0.0-4.0); HEMATOCRIT 30.4 % (36-48); HEMOGLOBIN 10.2 g/dL (12.0-16.0); LYMPHOCYTES # (AUTO) 2.6 K/uL (2.5-16.5); LYMPHOCYTES % (AUTO) 29.7 % (20.5-51.1); MEAN CORPUSCULAR HEMOGLOBIN 33 pg (27-31); MEAN CORPUSCULAR HGB CONC 34 g/dL (33-37); MONOCYTES # (AUTO) 0.5 K/uL (0.8-1.0); MONOCYTES % (AUTO) 5.7 % (1.7-9.3); NEUTROPHILS # (AUTO) 5.5 K/uL (1.8-7.7); NEUTROPHILS % (AUTO) 63.1 % (42.2-75.2); PLATELET COUNT (AUTO) 202 K/uL (140-450); RED BLOOD CELL COUNT(AUTO) 3.07 MIL/uL (4.20-5.40); RED CELL DISTRIBUTION WIDTH 13.1 % (11.6-13.7); WHITE BLOOD COUNT (AUTO) 8.8 K/uL (4.8-10.8)
[2018-09-13 08:14] LABS: ANION GAP 14.9 (8-16); CARBON DIOXIDE 21.4 mmol/L (21-32); POTASSIUM 4.3 mmol/L (3.5-5.1)
[2018-09-13] MEDS: GLIMEPIRIDE 2 MG TAB PO SCH (08:22)
[2018-09-13 08:26] LABS: PHOSPHORUS 2.8 mg/dL (2.5-4.9)
--- NOTE | 2018-09-13 09:19 | NUR ---
HELPED PATIENT TO BATHROOM. NO BM YET TODAY.
[2018-09-13] MEDS: hydrALAZINE 25 MG TAB PO SCH (10:19)
[2018-09-13] MEDS: busPIRone 5 MG TAB PO SCH (10:20)
[2018-09-13] MEDS: CITALOPRAM 20 MG TAB PO SCH (10:20)
[2018-09-13] MEDS: DOCUSATE SODIUM 100 MG GELCAP PO SCH (10:21)
[2018-09-13] MEDS: LOSARTAN 50 MG TAB PO SCH (10:22)
[2018-09-13] MEDS: metFORMIN 500 MG TAB PO SCH (10:22)
[2018-09-13] MEDS: METOPROLOL 25 MG TAB PO SCH (10:23)
[2018-09-13] MEDS: GABAPENTIN 100 MG CAP PO SCH (10:24)
[2018-09-13 12:00] VITALS: BP 129/63
[2018-09-13 12:05] VITALS: BP 126/65
[2018-09-13 12:10] VITALS: BP 116/57
[2018-09-13] MEDS ORDERED: BUS5 PO (12:25)
[2018-09-13] MEDS ORDERED: METO25TA PO (12:25)
[2018-09-13] MEDS ORDERED: FAMO-90 PO (12:25)
[2018-09-13] MEDS ORDERED: GABA300C PO (12:25)
[2018-09-13] MEDS: INSULIN LISPRO SLIDING SCALE 100 UNITS/ML VIAL SUBQ PRN (12:39)
--- NOTE | 2018-09-13 13:05 | NUR ---
DR. VILLANUEVA HAS EXPLAINED D/C POC TO PT AND FAMILY MEMBERS AT BEDSIDE. ANSWERED ALL QUESTIONS. PT VERBALIZED COMPLETE UNDERSTANDING.
--- NOTE | 2018-09-13 13:34 | NUR ---
PATIENT HAS BEEN SCREENED AND CATEGORIZED MODERATE NUTRITION RISK. PATIENT WILL BE SEEN WITHIN 3-5 DAYS OF ADMISSION. 09/14/18 - 09/16/18 JOVANY GANDHI MBA, RD
--- NOTE | 2018-09-13 13:55 | NUR ---
DISCHARGE PAPERWORK, INCLUDING INSTRUCTIONS TO F/U WITH PCP, COUNTY SUPERVISOR, AND RETURN AGENT AIRPORT, GIVEN TO PATIENT. NEW PRESCRIPTION/MEDICATION TEACHING AND MEDICATION RECONCILIATION TEACHING GIVEN TO PATIENT. PT VERBALIZED COMPLETE UNDERSTANDING. IV SITE REMOVED WITH MINIMAL BLOOD LOSS AND LUMEN COMPLETELY INTACT. ID BANDS REMOVED. ALL PERSONAL BELONGINGS ARE WITH PATIENT. Addendum: 09/13/18 at 1415 by Zabrina Klein Meng, RN PT WANTS TO F/U WITH PNEUMOVAX WITH PCP. FLU VACCINE UP TO DATE.
--- NOTE | 2018-09-13 14:09 | NUR ---
PT DISCHARGED FROM UNIT VIA WHEELCHAIR IN STABLE CONDITION. FAMILY MEMBERS AT BEDSIDE. WILL GO HOME WITH FAMILY VIA PRIVATE VEHICLE.
== END 2018-09-13 14:09 | disposition home or self-care (01) | DRG 73 ==
LOC: MED 11:18 → MTU 17:23
PROVIDERS: ADMIT General Practice; ATTEND General Practice
DX: G90.9 Disorder of the autonomic nervous system, unspecified (principal); N17.0 Acute kidney failure with tubular necrosis; G93.40 Encephalopathy, unspecified; I10 Essential (primary) hypertension; F41.9 Anxiety disorder, unspecified; K21.9 Gastro-esophageal reflux disease without esophagitis; Z90.49 Acquired absence of other specified parts of digestive tract; Z98.891 History of uterine scar from previous surgery; Z96.652 Presence of left artificial knee joint; E11.69 Type 2 diabetes mellitus with other specified complication; E11.42 Type 2 diabetes mellitus with diabetic polyneuropathy; D64.9 Anemia, unspecified; E11.319 Type 2 diabetes mellitus with unspecified diabetic retinopathy without macular edema; E83.39 Other disorders of phosphorus metabolism; E83.42 Hypomagnesemia; E78.1 Pure hyperglyceridemia
CPT/HCPCS: 36415; 70450; 71045; 74150; 76770; 80048; 80053; 80305; 81001; 82140; 82150; 82607; 82728; 82746; 82948; 83036; 83540; 83690; 83735; 83880; 84100; 84439; 84443; 84484; 85025; 85045; 85610; 85730; 87081; 93005; 93880; 97110; 97161-GP; 97530; 99285; C1758; G0480; G0482; J1644; J2405; J3475; J7030; J7060; Q0092